=== PATIENT | female | born 1995 | race Caucasian/White ===

== ENCOUNTER 2019-03-20 07:00 | Inpatient (IN) | payer OTHER ==
[2019-03-20] MEDS: LACTATED RINGER'S 1,000 ML IV ×3 (08:15→23:35)
[2019-03-20 08:55] LABS: ADD MAN DIFF? NO
[2019-03-20] MEDS ORDERED: MISOPROSTOL 200 MCG TAB PR (09:00)
[2019-03-20] MEDS ORDERED: CARBOPROST 250 MCG INJ IM (09:00)
[2019-03-20] MEDS ORDERED: LIDOCAINE 1% (MPF) 30 ML INJ INJ (09:00)
[2019-03-20] MEDS ORDERED: METHYLERGONOVINE 0.2 MG INJ IM (09:00)
[2019-03-20] MEDS ORDERED: OXYTOCIN 30 UNITS/LR 500 ML IV (09:00)
[2019-03-20] MEDS ORDERED: BUTORPHANOL 2 MG INJ IV (09:00)
[2019-03-20 09:14] LABS: BASOPHILS % 0.2 % (0.0-2.0); EOSINOPHILS # 0.1 10^3/ul (0.0-0.5); EOSINOPHILS % 0.8 % (0.0-7.0); HEMATOCRIT 31.8 % (37.0-47.0); HEMOGLOBIN 10.7 g/dl (12.0-16.0); LYMPHOCYTES # 2.3 10^3/ul (0.8-2.9); LYMPHOCYTES % 18.2 % (15.0-51.0); MEAN CORPUSCULAR HEMOGLOBIN 29.9 pg (29.0-33.0); MEAN CORPUSCULAR HGB CONC 33.6 g/dl (32.0-37.0); MEAN CORPUSCULAR VOLUME 88.8 fl (82.0-101.0); MEAN PLATELET VOLUME 11.3 fl (7.4-10.4); MONOCYTE # 0.7 10^3/ul (0.3-0.9); MONOCYTES % 5.6 % (0.0-11.0); NEUTROPHIL # 9.4 10^3/ul (1.6-7.5); NEUTROPHILS % 74.3 % (39.0-77.0); PLATELET COUNT 175 10^3/UL (140-415); RED BLOOD COUNT 3.58 10^6/ul (4.20-5.40)
[2019-03-20 09:14] LABS: WHITE BLOOD COUNT 12.7 10^3/ul (4.8-10.8)
[2019-03-20 09:21] LABS: INR 0.88; PT RATIO 0.9
[2019-03-20 09:22] LABS: PARTIAL THROMBOPLASTIN TIME 27.7 Sec (23.0-35.0)
[2019-03-20] MEDS: MISOPROSTOL 50 MCG CAPSULE PO ×3 (09:57→18:51)
[2019-03-20 15:50] LABS: RAPID PLASMA REAGIN NONREACTIVE (NR)
[2019-03-20 22:59] LABS: HEPATITIS B SURFACE ANTIGEN NEGATIVE (NEGATIVE)
[2019-03-21] MEDS: LACTATED RINGER'S 1,000 ML IV ×4 (03:58→19:46)
[2019-03-21] MEDS: MISOPROSTOL 50 MCG CAPSULE PO (11:59)
[2019-03-21] MEDS: OXYTOCIN 30 UNITS/LR 500 ML IV ×3 (16:17→22:54)
[2019-03-21] MEDS ORDERED: FENTAnyl 2MCG/ML-ROPIV 0.2% 100 ML (18:31)
[2019-03-21] MEDS ORDERED: ONDANSETRON 4 MG INJ IV (20:30)
[2019-03-21] MEDS ORDERED: NALOXONE (0.4 MG/ML) INJ IV (20:30)
[2019-03-21] MEDS ORDERED: NALBUPHINE HCL (10 MG/1 ML) INJ IV (20:30)
[2019-03-21] MEDS: FENTAnyl 2MCG/ML-ROPIV 0.2% 100 ML BAG EPI (20:36)
[2019-03-21] MEDS ORDERED: IBUPROFEN 600 MG TAB PO (21:00)
[2019-03-22] MEDS ORDERED: MINERAL OIL LIGHT 10 ML VIAL TOP
[2019-03-22] MEDS: LACTATED RINGER'S 1,000 ML IV* ×2 (01:07→09:07)
[2019-03-22] MEDS ORDERED: HYDROCODONE/APAP (5/325) TAB PO (01:30)
[2019-03-22] MEDS ORDERED: ACETAMINOPHEN 325 MG TAB PO (01:30)
[2019-03-22] MEDS ORDERED: MISOPROSTOL 200 MCG TAB PR (01:30)
[2019-03-22] MEDS ORDERED: METHYLERGONOVINE 0.2 MG INJ IM (01:30)
[2019-03-22] MEDS ORDERED: CARBOPROST 250 MCG INJ IM (01:30)
[2019-03-22] MEDS ORDERED: DIBUCAINE 1% 30 GM OINT TOP (01:30)
[2019-03-22] MEDS: BENZOCAINE 20% 56 ML SPRAY TOP (01:47)
[2019-03-22] MEDS: WITCH HAZEL/GLYCERIN PAD PR (01:47)
[2019-03-22] MEDS: OXYTOCIN 30 UNITS/LR 500 ML IV (05:29)
[2019-03-22] MEDS: IBUPROFEN 600 MG TAB PO ×4 (05:34→23:47)
[2019-03-22 08:35] LABS: ADD MAN DIFF? NO
[2019-03-22 08:51] LABS: WHITE BLOOD COUNT 14.9 10^3/ul (4.8-10.8)
[2019-03-22 08:51] LABS: BASOPHILS % 0.3 % (0.0-2.0); EOSINOPHILS # 0.1 10^3/ul (0.0-0.5); EOSINOPHILS % 0.4 % (0.0-7.0); LYMPHOCYTES # 1.9 10^3/ul (0.8-2.9); MEAN CORPUSCULAR HEMOGLOBIN 29.6 pg (29.0-33.0); MEAN CORPUSCULAR HGB CONC 33.3 g/dl (32.0-37.0); MEAN CORPUSCULAR VOLUME 88.8 fl (82.0-101.0); MEAN PLATELET VOLUME 11.6 fl (7.4-10.4); MONOCYTE # 0.9 10^3/ul (0.3-0.9); MONOCYTES % 5.7 % (0.0-11.0); NEUTROPHIL # 11.9 10^3/ul (1.6-7.5); NEUTROPHILS % 79.9 % (39.0-77.0); PLATELET COUNT 153 10^3/UL (140-415); RED BLOOD COUNT 3.38 10^6/ul (4.20-5.40); RED CELL DISTRIBUTION WIDTH 14.1 % (11.5-14.5)
[2019-03-22] MEDS: SENNA/DOCUSATE NA (8.6MG/50MG) TAB PO ×2 (09:19→20:59)
[2019-03-22] MEDS: FERROUS SULFATE (EC) 325 MG TAB PO (12:00)
[2019-03-23] MEDS: IBUPROFEN 600 MG TAB PO ×2 (05:46→12:21)
[2019-03-23] MEDS: DIPHTH/TET/ACEL PERTUSS (ADULT) 0.5 ML VIAL IM* (09:00)
[2019-03-23] MEDS: SENNA/DOCUSATE NA (8.6MG/50MG) TAB PO (10:01)
[2019-03-23] MEDS: FERROUS SULFATE (EC) 325 MG TAB PO (10:01)
== END 2019-03-23 15:05 | disposition home or self-care (01) | DRG 832 ==
LOC: PP1 03-22 00:57 → L-D 07:00
PROVIDERS: Obstetrics & Gynecology
PROC: 0UQGXZZ Repair Vagina, External Approach (ICD-10-PCS; principal; 2019-03-21)
PROC: 3E033VJ Introduction of Other Hormone into Peripheral Vein, Percutaneous Approach (ICD-10-PCS; 2019-03-21)
DX: O48.0 Post-term pregnancy (principal); O69.81X0 Labor and delivery complicated by cord around neck, without compression, not applicable or unspecified; O71.4 Obstetric high vaginal laceration alone; D62 Acute posthemorrhagic anemia; O99.02 Anemia complicating childbirth; Z3A.40 40 weeks gestation of pregnancy; Z37.0 Single live birth
CPT/HCPCS: 62322; 76816; 85025; 85610; 85730; 86592; 86850; 86900; 86901; 87340; 99464